=== PATIENT | male | born 1990 | race Caucasian/White ===

== ENCOUNTER 2024-04-13 18:09 | Emergency (ER) | payer OTHER, SELFPAY ==
--- NOTE | ~2024-04-13 | XR_ITS ---
EXAMINATION: XR ABDOMEN KUB CLINICAL INDICATION: lower abd pain COMPARISON: None available. TECHNIQUE: 3 views of the abdomen. FINDINGS: The bowel gas pattern is normal with no evidence of ileus or obstruction. No unusual soft tissue calcifications are noted. There is mild curvature of the thoracolumbar spine. XR/XR KUB IMPRESSION: Nonobstructive bowel gas pattern. Electronically signed by: Dawood Edwards DO 04/13/2024 07:17 PM [facility]
--- NOTE | ~2024-04-13 | CT_ITS ---
EXAMINATION: CT ABDOMEN AND PELVIS WITH CONTRAST CLINICAL INFORMATION: Abdominal pain. COMPARISON: None available. TECHNIQUE: Multidetector volumetric images were obtained from the superior aspect of the liver through the pubic symphysis following administration 85 mL of Omnipaque 350 intravenous contrast. Sagittal and coronal reformatted images were obtained on the technologist's workstation. Oral contrast: No This CT examination was performed using dose optimization techniques as appropriate, variously including the following: *Automated exposure control *Adjustment of mA and/or kV according to patient size (this includes techniques or standardized protocols for targeted exams where dose is matched to indication/reason for exam; i.e. extremities or head) *Use of iterative reconstruction technique DLP: 512 mGy-cm FINDINGS: LUNG BASES: The visualized lung bases are unremarkable. LIVER, GALLBLADDER, AND BILIARY TREE: The liver is normal in size, shape, and attenuation. No focal hepatic lesion or biliary ductal dilatation is present. The gallbladder is unremarkable with no evidence of radiopaque gallstones, gallbladder wall thickening, or obvious pericholecystic inflammatory changes. PANCREAS: Unremarkable. SPLEEN: Unremarkable. ADRENAL GLANDS: Unremarkable. KIDNEYS AND URETERS: The kidneys are normal in size, shape, and attenuation. No hydronephrosis, hydroureter, or calculi seen. No perinephric stranding. There are scattered tiny hypodensities within the left kidney too small to characterize but possibly small cysts. BLADDER: Unremarkable. GASTROINTESTINAL TRACT: There is significant thickening of the descending colon extending to the hepatic flexure with mild surrounding infiltration. There is no evidence for bowel obstruction. The appendix is visualized and is within normal limits. There is a small to moderate hiatal hernia. ABDOMINAL WALL: There is a small umbilical hernia containing fat. LYMPH NODES: Normal. VASCULAR: Unremarkable. PELVIC VISCERA: Pelvic viscera are unremarkable. There is a small amount of free fluid within the pelvis. OSSEOUS STRUCTURES: Unremarkable. CT/CT abdomen pelvis w IV con IMPRESSION: There is significant thickening of the ascending colon extending to the hepatic flexure with mild surrounding infiltration consistent with colitis. There is a small amount of free fluid within the pelvis. Small to moderate hiatal hernia. Fleischner guidelines were followed. Electronically signed by: Clay Olguin MD 04/14/2024 12:20 AM [facility]
[2024-04-13 18:24] VITALS: BP 132/83; PULSE 83; RESP 18; TEMP 36.9; O2SAT 98; BMI 23.9
--- NOTE | 2024-04-13 18:27 | ED.ABDPAIN ---
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 with clots per rectum multiple times no history of hemorrhoids no history of constipation and does feel hungry pain gets worse on ambulation no prior history of similar pain or bleeding in the past no fever or chills Related Data Previous Rx's ?Medication ?Instructions ?Recorded levofloxacin 500 mg tablet 500 mg PO DAILY 5 days #5 tabs 04/14/24 Allergies Allergy/AdvReac Type Severity Reaction Status Date / Time No Known Allergies Allergy Verified 04/13/24 18:26 Review of Systems Review of Systems Yes all other systems are reviewed and are negative [facility] Social History Social History Smoked in Last 30 Days: No Use of substances other than those prescribed or required for medical reasons: No Advance Directives: No Advance Directives Information Provided: No Do you have a plan to hurt others: No Plan Physical Exam ED Vital Signs: Vital Signs - 24 hr 04/13/24 18:24 04/13/24 21:19 04/13/24 22:43 Temperature 98.4 F 97.7 F Pulse Rate 83 76 Respiratory Rate 18 16 18 Blood Pressure 132/83 123/72 Pulse Oximetry 98 100 Oxygen Delivery Method Room Air Room Air 04/14/24 01:34 04/14/24 01:49 Temperature 98.8 F 98.8 F Pulse Rate 77 77 Respiratory Rate 17 17 Blood Pressure 127/81 127/81 Pulse Oximetry 99 99 Oxygen Delivery Method Room Air Room Air BMI result Body Mass Index 23.9 Appearance: Alert. Oriented X3. No acute distress. Eyes: PERRLA, No Nystagmus ENT: Pharynx normal. Oral Mucosa moist Neck: Normal inspection. Neck supple. CVS: Normal heart rate and rhythm. Pulses normal. Respiratory: No respiratory distress. Equal air entry bilateral, no wheezing/rales/rhonchi Abdomen: Soft and tenderness right lower quadrant and left lower quadrant with guarding no rebound tenderness Bowel sounds are present, no mass palpable, no CVA tenderness rectal: No hemorrhoids palpable no blood on the finger Skin: Skin warm and dry. Normal skin color. Normal skin turgor. Extremities: No lower extremity edema. No calf tenderness Neuro: Oriented X 3. No motor deficit. No sensory deficit.No cerebellar signs , cranial nerves II-XII intact Course Course Course Narrative: This is a Rapid Medical Examination (RME) performed by Colby Pinto PA-C in triage. Full HPI, ROS, assessment and treatment plan per primary provider in the Main ED. 33 yo male here for eval of lower abdominal pain and rectal bleeding since midnight (18 hours ago). reports 8/10 lower abdominal pain. admits to rectal bleeding however has been unable to pass BM in >12 hours. no known history of hemorrhoids. not on AC. Plan: labs, UA, obs Medical Decision Making Medical Decision Making MDM Narrative: Patient has diffuse abdominal pain and rectal bleed CT scan shows colitis feeling much better no bowel movement in the ER discharge patient H&H stable Differential Diagnosis Differential Diagnoses: The differential diagnosis associated with the presentation includes Lab Data [facility] Lab Attestation statement: I reviewed the patient's lab results. 04/13/24 18:40 04/13/24 18:40 Labs: Lab Results 04/13/24 Range/Units 18:40 WBC 13.6 H (4.8-10.8) X10*3/uL RBC 4.69 (4.60-5.80) X10*6/uL Hgb 15.3 (14.0-18.0) g/dl Hct 43.5 (42.0-52.0) % MCV 92.8 (80.0-98.0) fL MCH 32.6 (27.0-33.0) pg MCHC 35.2 (31.0-36.0) g/dl RDW 11.9 (11.0-16.0) % Plt Count 240 (160-400) X10*3/uL MPV 10.0 (9.4-12.4) fL Immature Gran % (Auto) 0.4 (0.0-0.4) % Neut % (Auto) 84.1 H (45-73) % Lymph % (Auto) 7.6 L (20-40) % [place] % (Auto) 7.7 (2-11) % Eos % (Auto) 0.1 (0-4) % Baso % (Auto) 0.1 (0-2) % Lymph # (Auto) 1.0 L (1.2-4.9) X10*3/uL [place] # (Auto) 1.1 (0.1-1.2) X10*3/uL Eos # (Auto) 0.0 (0.0-0.4) X10*3/uL Baso # (Auto) 0.0 (0.0-0.2) X10*3/uL Abs Immat Gran (auto) 0.06 H (0.00-0.03) X10*3/uL Absolute Neuts (auto) 11.4 H (2.0-8.3) x10*3/uL Absolute Nucleated RBC 0.000 (0.0-0.012) X10*3/uL Nucleated RBC % (auto) 0.0 (0.0-0.2) /100WBC Sodium 139 (135-145) mmol/L Potassium 3.7 (3.3-5.1) mmol/L Chloride 106 (96-108) mmol/L Carbon Dioxide 26 (22-29) mmol/L Anion Gap 11 L (12-20) BUN 9 (9-16) mg/dL Creatinine 0.87 (0.5-1.4) mg/dL Estim Creat Clear Calc 145.6 Estimated GFR > 60 Random Glucose 117 H (60-115) mg/dL Calcium 9.4 (8.4-10.2) mg/dL Magnesium 2.0 (1.6-2.6) mg/dL Total Bilirubin 0.5 (0.0-1.0) mg/dL AST 33 (5-37) U/L ALT 65 H (0-40) U/L Alkaline Phosphatase 100 (39-117) U/L Total Protein 7.5 (6.5-8.0) g/dL Albumin 4.3 (3.5-5.0) g/dL Lipase 7 L (8-78) U/L Independent Interpretation I performed an independent interpretation of an: CT Scan Radiology Impression Discussion of test interpretation with radiology: I have reviewed the radiologist's reading. Radiologist Impression: CT/CT abdomen pelvis w IV con IMPRESSION: There is significant thickening of the ascending colon extending to the hepatic flexure with mild surrounding infiltration consistent with colitis. There is a small amount of free fluid within the pelvis. Small to moderate hiatal hernia. Fleischner guidelines were followed. Electronically signed by: Clay Olguin MD 04/14/2024 12:20 AM [facility] Medications Administered Discontinued Medications Generic Name Dose Route Start Last Admin Trade Name Freq PRN Reason Stop Dose Admin Sodium Chloride 1,000 mls @ 999 mls/hr 04/13/24 22:25 04/14/24 00:01 Ns IV 04/13/24 23:25 Infused .Q1H1M ONE Infusion Iohexol 100 ml 04/13/24 22:53 04/13/24 22:53 Iohexol 350 Mg/Ml 100 Ml Infus..Btl IV 04/13/24 22:54 85 ml ONCE ONE Administration Levofloxacin 500 mg 04/14/24 00:41 04/14/24 01:35 Levofloxacin 500 Mg Tablet PO 04/14/24 00:42 500 mg ONCE ONE Administration Morphine Sulfate 4 mg 04/13/24 22:25 04/13/24 22:43 Morphine Sulfate 4 Mg/Ml Cartridge IVPUSH 04/13/24 22:26 4 mg ONCE ONE Administration Protocol Ondansetron HCl 4 mg 04/13/24 22:25 04/13/24 22:43 Ondansetron Hcl 4 Mg/2 Ml Vial IVPUSH 04/13/24 22:26 4 mg ONCE ONE Administration Discharge Plan Discharge Clinical Impression: Colitis Patient Disposition: Home, Self-Care Instructions: Colitis (ED) Additional Instructions: Drink plenty of fluids Take antibiotics as prescribed Report to ER if worsening of the pain or bleeding Prescriptions: New levofloxacin 500 mg tablet 500 mg PO DAILY 5 Days Qty: 5 0RF Stand Alone Forms: Work/School Release Interventions: ED Discharge Assessment Last Done: 04/14/24 01:49 Discharge Date/Time: 04/14/24 01:50 Print Language: Bengali
[2024-04-13 18:44] LABS: MANUAL DIFF FLAG NO
[2024-04-13 18:49] LABS: Basophils Percent Auto 0.1 % (0-2); Eosinophils Percent Auto 0.1 % (0-4); Hematocrit 43.5 % (42.0-52.0); Hemoglobin 15.3 g/dl (14.0-18.0); Imm Gran Abs Auto 0.06 X10*3/uL (0.00-0.03); Imm Gran Pct Auto 0.4 % (0.0-0.4); Lymphocytes Percent Auto 7.6 % (20-40); Mean Corpuscular HGB Conc 35.2 g/dl (31.0-36.0); Mean Corpuscular Hemoglobin 32.6 pg (27.0-33.0); Mean Corpuscular Volume 92.8 fL (80.0-98.0); Monocytes Absolute Auto 1.1 X10*3/uL (0.1-1.2); Monocytes Percent Auto 7.7 % (2-11); Neutrophils Absolute Auto 11.4 x10*3/uL (2.0-8.3); Neutrophils Percent Auto 84.1 % (45-73); Platelet Count 240 X10*3/uL (160-400); Red Blood Count 4.69 X10*6/uL (4.60-5.80); Red Cell Distribution Width 11.9 % (11.0-16.0); White Blood Count 13.6 X10*3/uL (4.8-10.8)
[2024-04-13 19:04] LABS: Alanine Aminotransferase 65 U/L (0-40); Albumin Level 4.3 g/dL (3.5-5.0); Alkaline Phosphatase 100 U/L (39-117); Anion Gap 11 (12-20); Aspartate Amino Transferase 33 U/L (5-37); Bilirubin Total 0.5 mg/dL (0.0-1.0); Blood Urea Nitrogen 9 mg/dL (9-16); Calcium 9.4 mg/dL (8.4-10.2); Carbon Dioxide 26 mmol/L (22-29); Chloride 106 mmol/L (96-108); Creatinine Clr Calc Pharmacy 145.6; Estimated Glomerular Filt Rate > 60; Glucose Random 117 mg/dL (60-115); Lipase 7 U/L (8-78); Potassium 3.7 mmol/L (3.3-5.1); Sodium 139 mmol/L (135-145); Total Protein 7.5 g/dL (6.5-8.0)
[2024-04-13 21:19] VITALS: BP 123/72; PULSE 76; RESP 16; TEMP 36.5; O2SAT 100
[2024-04-13 22:43] VITALS: RESP 18
[2024-04-13] MEDS: ondansetron HCL 4 MG/2 ML VIAL IVPUSH (22:43)
[2024-04-13] MEDS: Morphine Sulfate 4 MG/ML CARTRIDGE IVPUSH (22:43)
[2024-04-13] MEDS: 0.9 % Sodium Chloride 1,000 ML 999 ML IV (22:44)
--- NOTE | 2024-04-13 22:52 | PC.NURSE ---
this rn assumed care of pt, pt a&ox4, respirations even and unlabored. pt reporting onset of lower abdominal pain and rectal bleeding x4 hours, pt reports he has been having multiple bloody diarrhea episodes. pt reports nausea but denies vomiting. pt reports poor PO intake. 20G placed in right ac, medicated per jul.
[2024-04-13] MEDS: iohexoL 350 MG/ML 100 ML INFUS..BTL IV (22:53)
[2024-04-14 01:34] VITALS: BP 127/81; PULSE 77; RESP 17; TEMP 37.1; O2SAT 99
[2024-04-14] MEDS: levoFLOXacin 500 MG TABLET PO (01:35)
[2024-04-14 01:49] VITALS: BP 127/81; PULSE 77; RESP 17; TEMP 37.1; O2SAT 99
== END 2024-04-14 01:50 | disposition home or self-care (01) ==
PROVIDERS: Physician Assistant Medical; Emergency Provider Internal Medicine
DX: K52.9 Noninfective gastroenteritis and colitis, unspecified (principal); R10.2 Pelvic and perineal pain; K44.9 Diaphragmatic hernia without obstruction or gangrene; Z79.899 Other long term (current) drug therapy
CPT/HCPCS: 36415; 74018; 74177; 80053; 83690; 83735; 85025; 96361; 96374; 96375; 99284; 99285; J2270; J2405; Q9967